=== PATIENT | female | born 1975 | race African-American/Black ===

== ENCOUNTER 2017-10-08 04:25 | Emergency (ER) | payer SELFPAY ==
[~2017-10-08] VITALS: Ht 165.1 cm; Wt 117.0 kg
[~2017-10-08 04:25] MED LIST: CYCL5TAB PO; HYDR-2758 PO
[2017-10-08 04:54] LABS: BILIRUBIN,URINE NEGATIVE (NEG); CLARITY,URINE CLOUDY; COLOR,URINE YELLOW; NITRITE,URINE NEGATIVE (NEG); PH,URINE 7.5; PROTEIN,URINE NEGATIVE (NEG-TRACE); UROBILINOGEN,URINE 0.2 mg/dL (0.2 mg/dL)
[2017-10-08 05:01] LABS: AMORPHOUS SEDIMENT,UR PRESENT /HPF; BACTERIA,URINE 0 /HPF (0-FEW); RBC,URINE 0 /HPF (0-2); SQUAMOUS EPITHELIAL CELL,UR FEW /LPF; WBC,URINE OCC /HPF (0-4)
[2017-10-08] MEDS ORDERED: KETOROLAC 30 MG/ML VIAL. IV ONE (05:30)
[2017-10-08] MEDS ORDERED: IV NORMAL SALINE 1000ML BAG 1,000 ML IV ONE (05:30)
[2017-10-08] MEDS ORDERED: METOCLOPRAMIDE HCL 10 MG/2 ML VIAL. IV ONE (05:30)
[2017-10-08 05:32] LABS: CALCIUM 10.8 mg/dL (8.5-10.1); CREATININE 0.8 mg/dL (0.6-1.0); GFR 94.3; POTASSIUM 3.8 mmol/L (3.5-5.1)
--- NOTE | 2017-10-08 05:36 | RAD ---
PQRS Compliance Statement: One or more of the following individualized dose reduction techniques were utilized for this examination: 1. Automated exposure control 2. Adjustment of the mA and/or kV according to patient size 3. Use of iterative reconstruction technique CT ABDOMEN PELVIS WO CONTRAST Clinical Indication: rt. flank pain Comparison: None. Technique: Helical CT imaging of the abdomen and pelvis is performed without IV or oral contrast. Findings: Mild atelectasis in the medial right lower lobe. Cardiac size normal. Small hypodensity in segment 2/3 of the liver, too small to further characterize. Liver otherwise homogeneous. Gallbladder is contracted, limiting evaluation. Spleen, pancreas, and abdominal aorta caliber are normal. There is bilateral adrenal gland hyperplasia. There is a 4 mm nonobstructing right renal calculus. Right kidney is malrotated. There is no right hydronephrosis. The left kidney is normal. Stomach unremarkable. No dilated small bowel. The appendix is normal. There is no colon wall thickening. There is fluid in the ascending and transverse colon. No abdominal adenopathy or free fluid. Urinary bladder is mostly decompressed, limiting evaluation. Uterus unremarkable. There is a probable 3.7 cm right adnexal cyst. No pelvic free fluid. Disc space narrowing and endplate spurring and vacuum disc phenomenon of L1/L2 and L5/S1. There may be mild central canal stenosis of L5/S1. IMPRESSION: 1. No obstructive uropathy. The appendix is normal. 2. There is a 4 mm nonobstructing right renal calculus. 3. There is a small right adnexal cyst. No pelvic free fluid. Electronically signed by: Rick Rodriguez MD (10/08/2017 5:33 AM) [facility]
[2017-10-08 05:38] LABS: ALBUMIN 4.1 g/dL (3.4-5.0); MAGNESIUM 2.2 mg/dL (1.8-2.4); TOTAL BILIRUBIN 0.5 mg/dL (0.2-1.0); TOTAL PROTEIN 8.3 g/dL (6.4-8.2)
[2017-10-08 05:41] LABS: BASO # 0.1 x10^3/uL (0.0-0.2); BASO % 2 % (0-3); EOS # 0.2 x10^3/uL (0.0-0.7); EOS % 3 % (0-3); HEMATOCRIT 44.2 % (36.0-47.0); HEMOGLOBIN 15.2 g/dL (12.0-15.5); LYMPH # 1.8 x10^3/uL (1.0-4.8); LYMPH % 32 % (24-48); MEAN CORPUSCULAR HEMOGLOBIN 34 pg (25-35); MEAN CORPUSCULAR HGB CONC 34 g/dL (31-37); MEAN CORPUSCULAR VOLUME 97 fL (79-100); MONO # 0.5 x10^3/uL (0.0-1.1); MONO % 8 % (0-9); NEUT # 3.1 x10^3uL (1.8-7.7); NEUT % 55 % (31-73); PLATELET COUNT 244 x10^3/uL (140-400); RED BLOOD COUNT 4.55 x10^6/uL (3.50-5.40); RED CELL DISTRIBUTION WIDTH 13.8 % (11.5-14.5); WHITE BLOOD COUNT 5.6 x10^3/uL (4.0-11.0)
--- NOTE | 2017-10-08 05:44 | PHYS DOC ---
Past Medical History Past Medical History: Asthma, Sciatica Past Surgical History: Tubal ligation Additional Information: 1 PPD Alcohol Use: None Drug Use: Marijuana Adult General Chief Complaint Chief Complaint: FLANK PAIN HPI HPI 42-year-old female presents with right sided pain with radiation to right lower quadrant times one day. Patient does report three-day history of some issues with constipation. Reports yesterday she did have a scant bowel movement. Denies nausea or vomiting. Denies fever or chills. Denies hematuria or dysuria. Denies trauma. Denies rash. Patient reports taking a laxative last night without significant output. Review of Systems Review of Systems Constitutional: Denies fever or chills [] Eyes: Denies change in visual acuity, redness, or eye pain [] HENT: Denies nasal congestion or sore throat [] Respiratory: Denies cough or shortness of breath [] Cardiovascular: Denies chest pain or palpitations GI: Denies nausea, vomiting, or diarrhea; reports abdominal pain and constipation : Denies dysuria or hematuria [] Musculoskeletal: Denies family swelling or pain; reports flank pain Integument: Denies rash or skin lesions [] Neurologic: Denies headache, focal weakness or sensory changes [] Complete systems were reviewed and found to be within normal limits, except as documented in this note. Current Medications Current Medications Current Medications Medications (Trade) Dose Ordered Sig/Tushar Start Time Stop Time Status Last Admin Dose Admin Ketorolac Tromethamine (Toradol 30mg Vial) 30 mg 1X ONCE 10/08/17 05:30 10/08/17 05:31 DC 10/08/17 05:19 30 MG Metoclopramide HCl (Reglan Vial) 10 mg 1X ONCE 10/08/17 05:30 10/08/17 05:31 DC 10/08/17 05:19 10 MG Sodium Chloride 1,000 ml @ 1,000 mls/hr 1X ONCE 10/08/17 05:30 10/08/17 06:29 10/08/17 05:19 1,000 MLS/HR Allergies Allergies Allergies Coded Allergies Type Severity Reaction Last Updated Verified No Known Drug Allergies 12/21/15 No Physical Exam Physical Exam Constitutional: Well developed, well nourished, no acute distress, non-toxic appearance. Uncomfortable HENT: Normocephalic, atraumatic, oropharynx moist Eyes: PERRL, EOMI, conjunctiva normal, no discharge. [] Neck: Normal range of motion, no tenderness, supple, no meningeal signs Cardiovascular: Heart rate regular rhythm, no murmur [] Lungs & Thorax: Bilateral breath sounds clear to auscultation [] Abdomen: Soft, right lower quadrant abdominal pain, no psoas sign, McBurney point negative Skin: Warm, dry, no erythema, no rash. [] Back: No midline spinal tenderness, right CVA tenderness Extremities: No tenderness, ROM intact, no edema. [] Neurologic: Alert and oriented X 3, normal motor function, normal sensory function, no focal deficits noted. [] Psychologic: Affect normal, judgement normal, mood normal. [] Current Patient Data Vital Signs Vital Signs Date Time Temp Pulse Resp B/P (MAP) Pulse Ox O2 Delivery O2 Flow Rate FiO2 10/08/17 04:50 98.6 69 16 198/109 (138) 95 Room Air 98.6 Lab Values Laboratory Tests Test 10/08/17 04:48 10/08/17 05:14 Urine Collection Type Unknown Urine Color Yellow Urine Clarity Cloudy Urine pH 7.5 Urine Specific [place] 1.015 Urine Protein Negative mg/dL (NEG-TRACE) Urine Glucose (UA) Negative mg/dL (NEG) Urine Ketones (Stick) Negative mg/dL (NEG) Urine Blood Negative (NEG) Urine Nitrite Negative (NEG) Urine Bilirubin Negative (NEG) Urine Urobilinogen Dipstick 0.2 mg/dL (0.2 mg/dL) Urine Leukocyte Esterase Negative (NEG) Urine RBC 0 /HPF (0-2) Urine WBC Occ /HPF (0-4) Urine Squamous Epithelial Cells Few /LPF Urine Amorphous Sediment Present /HPF Urine Bacteria 0 /HPF (0-FEW) Urine Mucus Slight /LPF White Blood Count 5.6 x10^3/uL (4.0-11.0) Red Blood Count 4.55 x10^6/uL (3.50-5.40) Hemoglobin 15.2 g/dL (12.0-15.5) Hematocrit 44.2 % (36.0-47.0) Mean Corpuscular Volume 97 fL (79-100) Mean Corpuscular Hemoglobin 34 pg (25-35) Mean Corpuscular Hemoglobin Concent 34 g/dL (31-37) Red Cell Distribution Width 13.8 % (11.5-14.5) Platelet Count 244 x10^3/uL (140-400) Neutrophils (%) (Auto) 55 % (31-73) Lymphocytes (%) (Auto) 32 % (24-48) Monocytes (%) (Auto) 8 % (0-9) Eosinophils (%) (Auto) 3 % (0-3) Basophils (%) (Auto) 2 % (0-3) Neutrophils # (Auto) 3.1 x10^3uL (1.8-7.7) Lymphocytes # (Auto) 1.8 x10^3/uL (1.0-4.8) Monocytes # (Auto) 0.5 x10^3/uL (0.0-1.1) Eosinophils # (Auto) 0.2 x10^3/uL (0.0-0.7) Basophils # (Auto) 0.1 x10^3/uL (0.0-0.2) Sodium Level 141 mmol/L (136-145) Potassium Level 3.8 mmol/L (3.5-5.1) Chloride Level 105 mmol/L (98-107) Carbon Dioxide Level 29 mmol/L (21-32) Anion Gap 7 (6-14) Blood Urea Nitrogen 13 mg/dL (7-20) Creatinine 0.8 mg/dL (0.6-1.0) Estimated GFR (Cockcroft-Gault) 94.3 BUN/Creatinine Ratio 16 (6-20) Glucose Level 101 mg/dL (70-99) H Calcium Level 10.8 mg/dL (8.5-10.1) H Magnesium Level 2.2 mg/dL (1.8-2.4) Total Bilirubin 0.5 mg/dL (0.2-1.0) Aspartate Amino Transferase (AST) 17 U/L (15-37) Alanine Aminotransferase (ALT) 18 U/L (14-59) Alkaline Phosphatase 82 U/L (46-116) Total Protein 8.3 g/dL (6.4-8.2) H Albumin 4.1 g/dL (3.4-5.0) Albumin/Globulin Ratio 1.0 (1.0-1.7) Lipase 106 U/L (73-393) Laboratory Tests 10/08/17 05:14 Laboratory Tests 10/08/17 05:14 EKG EKG [] Radiology/Procedures Radiology/Procedures PROCEDURE: CT ABDOMEN PELVIS WO CONTRAST PQRS Compliance Statement: One or more of the following individualized dose reduction techniques were utilized for this examination: 1. Automated exposure control 2. Adjustment of the mA and/or kV according to patient size 3. Use of iterative reconstruction technique CT ABDOMEN PELVIS WO CONTRAST Clinical Indication: rt. flank pain Comparison: None. Technique: Helical CT imaging of the abdomen and pelvis is performed without IV or oral contrast. Findings: Mild atelectasis in the medial right lower lobe. Cardiac size normal. Small hypodensity in segment 2/3 of the liver, too small to further characterize. Liver otherwise homogeneous. Gallbladder is contracted, limiting evaluation. Spleen, pancreas, and abdominal aorta caliber are normal. There is bilateral adrenal gland hyperplasia. There is a 4 mm nonobstructing right renal calculus. Right kidney is malrotated. There is no right hydronephrosis. The left kidney is normal. Stomach unremarkable. No dilated small bowel. The appendix is normal. There is no colon wall thickening. There is fluid in the ascending and transverse colon. No abdominal adenopathy or free fluid. Urinary bladder is mostly decompressed, limiting evaluation. Uterus unremarkable. There is a probable 3.7 cm right adnexal cyst. No pelvic free fluid. Disc space narrowing and endplate spurring and vacuum disc phenomenon of L1/L2 and L5/S1. There may be mild central canal stenosis of L5/S1. IMPRESSION: 1. No obstructive uropathy. The appendix is normal. 2. There is a 4 mm nonobstructing right renal calculus. 3. There is a small right adnexal cyst. No pelvic free fluid. Electronically signed by: Rick Rodriguez MD (10/08/2017 5:33 AM) [facility] Course & Med Decision Making Course & Med Decision Making Pertinent Labs and Imaging studies reviewed. (See chart for details) Patient presents with right sided flank pain with radiation to right lower quadrant. Patient does report associated constipation issues. Abdomen non- peritoneal. Labs obtained and posted to chart. UA without signs of infection or microscopic hematuria. CT abdomen/pelvis without acute process. Symptomatic treatment provided with interval improvement of symptoms. Patient stable for discharge with outpatient follow-up with PCP. Discussed findings and plan with patient and family, who acknowledge understanding and agreement. Vicky Disclaimer Vicky Disclaimer This electronic medical record was generated, in whole or in part, using a voice recognition dictation system. Departure Departure Impression: Primary Impression: Flank pain Additional Impression: Constipation Disposition: 01 HOME, SELF-CARE Condition: STABLE Referrals: NO PCP (PCP) Patient Instructions: Constipation, Adult, [id number], Flank Pain, Easy-to- Read Scripts Sennosides/Docusate Sodium (Colace 2-in-1 Tablet) 1 Each Tablet 1 EACH PO QHS, #20 TAB Prov: MARLY DOWNS DO 10/08/17 Orphenadrine Citrate (ORPHENADRINE CITRATE) 100 Mg Tablet.er 1 TAB PO BID PRN for MUSCLE PAIN, #14 TAB 0 Refills Prov: MARLY DOWNS DO 10/08/17 Problem Qualifiers Additional Impression: Constipation Constipation type: unspecified constipation type Qualified Codes: K59.00 - Constipation, unspecified MARLY DOWNS DO Oct 08, 2017 05:44
[2017-10-08 05:50] VITALS: BP 189/94
[2017-10-08] MEDS ORDERED: SENN-121 PO (05:51)
[2017-10-08] MEDS ORDERED: ORPH100T PO (05:51)
== END 2017-10-08 06:03 | disposition home or self-care (01) ==
LOC: ER 04:25
DX: K59.00 Constipation, unspecified (principal); R10.31 Right lower quadrant pain; F17.200 Nicotine dependence, unspecified, uncomplicated; J45.909 Unspecified asthma, uncomplicated; Z98.51 Tubal ligation status
CPT/HCPCS: 36415; 74176; 80053; 81001; 83690; 83735; 85025; 96374; 96375; 99285; J1885; J2765; J7030